=== PATIENT | female | born 1965 | race Caucasian/White ===

== ENCOUNTER 2020-08-19 15:48 | Emergency (ER) | payer MEDICARE, MEDICAID ==
[~2020-08-19] VITALS: Ht 167.6 cm; Wt 90.0 kg
[~2020-08-19 15:48] MED LIST: DICY10CA88 PO; FAMO40TA73 PO; SUCR1TAB34 PO
[2020-08-19 15:51] VITALS: BP 131/84
[2020-08-19] MEDS ORDERED: ketorolac trometh. 30mg/ml inj. IM ONE (16:45)
== END 2020-08-19 18:11 | disposition home or self-care (01) ==
LOC: ER 15:49
DX: M25.532 Pain in left wrist (principal); M79.641 Pain in right hand; W19.XXXA Unspecified fall, initial encounter; Y93.89 Activity, other specified; Y92.89 Other specified places as the place of occurrence of the external cause; Y99.8 Other external cause status
CPT/HCPCS: 73080; 73110; 73130; 96372; 99284; J1885

== ENCOUNTER 2021-06-10 22:05 | Emergency (ER) | payer MEDICARE, MEDICAID ==
[~2021-06-10] VITALS: Ht 167.6 cm; Wt 81.8 kg
[2021-06-10 22:12] VITALS: BP 168/88
[2021-06-11] MEDS ORDERED: TRAM50TA2 PO (09:32)
[2021-06-11] MEDS ORDERED: CYCL-1 PO (09:32)
== END 2021-06-11 02:18 | disposition left against medical advice (07) ==
LOC: ER 22:07
DX: M25.519 Pain in unspecified shoulder (principal); Z53.21 Procedure and treatment not carried out due to patient leaving prior to being seen by health care provider
CPT/HCPCS: 73030